=== PATIENT | female | born 1940 | race Caucasian/White ===

== ENCOUNTER → 2023-07-30 14:02 | Outpatient (REF) | payer OTHER, SELFPAY | LOC: HWWDC 14:02 | PROVIDERS: ATTENDING PHYSICIAN Family Medicine | DX: Z12.31 Encounter for screening mammogram for malignant neoplasm of breast (principal) | CPT/HCPCS: 77063; 77067 ==

== ENCOUNTER → 2023-08-09 07:38 | Outpatient (REF) | payer OTHER, SELFPAY | LOC: HWRAD 07:38 | PROVIDERS: ATTENDING PHYSICIAN Family Medicine | DX: R32 Unspecified urinary incontinence (principal) | CPT/HCPCS: 76857 ==

== ENCOUNTER → 2023-09-11 10:22 | Outpatient (REF) | payer OTHER, SELFPAY | LOC: HWRAD 10:22 | PROVIDERS: ATTENDING PHYSICIAN Nurse Practitioner; FAMILY PHYSICIAN Family Medicine | DX: N39.0 Urinary tract infection, site not specified (principal) | CPT/HCPCS: 76856 ==

== ENCOUNTER → 2024-03-06 15:58 | Outpatient (REF) | payer OTHER, SELFPAY | LOC: HWRAD 15:58 | PROVIDERS: ATTENDING PHYSICIAN Emergency Medicine; FAMILY PHYSICIAN Family Medicine | DX: J06.9 Acute upper respiratory infection, unspecified (principal) | CPT/HCPCS: 71046 ==

== ENCOUNTER → 2024-10-14 16:53 | Outpatient (REF) | payer OTHER, SELFPAY | LOC: HWWDC 16:53 | PROVIDERS: ATTENDING PHYSICIAN Family Medicine | DX: Z12.31 Encounter for screening mammogram for malignant neoplasm of breast (principal) | CPT/HCPCS: 77063; 77067 ==

== ENCOUNTER → 2024-11-24 10:49 | Outpatient (REF) | payer OTHER, SELFPAY | LOC: HWRAD 10:49 | PROVIDERS: ATTENDING PHYSICIAN Internal Medicine Critical Care Medicine; FAMILY PHYSICIAN Family Medicine | DX: J45.991 Cough variant asthma (principal); R05.3 Chronic cough; R04.2 Hemoptysis | CPT/HCPCS: 71250 ==